=== PATIENT | female | born 1995 | race American Indian/Alaskan Native ===

== ENCOUNTER 2017-02-08 12:19 | Outpatient (CLI) | payer OTHER | END 2017-02-08 14:25 | disposition home or self-care (01) | LOC: TRG 12:19 | PROVIDERS: ATTEND Obstetrics & Gynecology | DX: O48.0 Post-term pregnancy (principal); Z3A.41 41 weeks gestation of pregnancy | CPT/HCPCS: 59025 ==

== ENCOUNTER 2022-04-18 23:27 | Emergency (ER) | payer SELFPAY ==
[2022-04-19 00:14] VITALS: BP 109/63
== END 2022-04-19 03:55 | disposition left against medical advice (07) ==
LOC: ED 23:27
DX: R51.9 Headache, unspecified (principal); Z53.21 Procedure and treatment not carried out due to patient leaving prior to being seen by health care provider